=== PATIENT | female | born 1985 | race Hispanic/Latino ===

== ENCOUNTER 2018-05-09 18:59 | Emergency (ER) | payer MEDICAID, OTHER ==
[2018-05-09] MEDS ORDERED: TETANUS/DIPHTHERIA TOXOID [ADULT] 0.5 ML VIAL IM ONE (20:17)
== END 2018-05-09 20:26 | disposition home or self-care (01) ==
LOC: EDH 18:59
DX: S91.112A Laceration without foreign body of left great toe without damage to nail, initial encounter (principal); J45.909 Unspecified asthma, uncomplicated; W01.0XXA Fall on same level from slipping, tripping and stumbling without subsequent striking against object, initial encounter; Y93.89 Activity, other specified; Y92.098 Other place in other non-institutional residence as the place of occurrence of the external cause; Y99.8 Other external cause status
CPT/HCPCS: 12001; 73630; 90471; 90714

== ENCOUNTER 2019-11-23 06:55 | Day surgery (SDC) | payer OTHER ==
[2019-11-19 16:05] VITALS: BP 99/65
[2019-11-19 16:19] LABS: BASOPHILS % (AUTO) 0.4 % (0.0-5.0); EOSINOPHILS % (AUTO) 2.7 % (0.0-8.0); HEMATOCRIT 37.9 % (36-48); LYMPHOCYTES % (AUTO) 36.8 % (21.0-51.0); MEAN CORPUSCULAR VOLUME 96.9 fL (79-99); MONOCYTES % (AUTO) 11.1 % (3.0-13.0); NEUTROPHILS % (AUTO) 48.8 % (40.0-77.0); PLATELET COUNT (AUTO) 182 K/uL (130-400); RED BLOOD CELL COUNT(AUTO) 3.91 MIL/uL (4.00-5.50); RED CELL DISTRIBUTION WIDTH 13.1 % (11.0-15.5); WHITE BLOOD COUNT (AUTO) 5.5 K/uL (4.8-10.8)
[2019-11-19 16:42] LABS: ALANINE AMINOTRANSFERASE 34 U/L (12-78); BILIRUBIN,TOTAL 0.3 mg/dL (0.2-1.0); TOTAL PROTEIN, SERUM 7.9 g/dL (6.0-8.3)
--- NOTE | 2019-11-19 16:44 | NUR ---
NOTE PER PT, SHE HAD COMPLETED ANTIBIOTICS ON 11/16/[address] FORTE IS AWARE.
[2019-11-19 17:08] LABS: ASPARTATE AMINOTRANSFERASE 22 U/L (10-37)
[2019-11-19 17:35] LABS: BILIRUBIN,DIRECT < 0.1 mg/dL (0.0-0.3)
[~2019-11-23] VITALS: Ht 160 cm; Wt 71.7 kg
[2019-11-23] VITALS (22 sets, daily range): BP systolic 98–118; BP diastolic 52–72
[~2019-11-23 06:55] MED LIST: OMEP40CA13 PO
[2019-11-23] MEDS ORDERED: LACTATED RINGERS 1000ML 1,000 ML IV ONE (07:53)
[2019-11-23] MEDS ORDERED: HEPARIN SODIUM 1000UNIT/ML 10ML VIAL ONE (08:50)
[2019-11-23] MEDS ORDERED: ONDANSETRON HCL 4 MG/2 ML VIAL ONE (09:14)
[2019-11-23] MEDS ORDERED: SUCCINYLCHOLINE 200MG/10ML SYR ONE (09:14)
[2019-11-23] MEDS ORDERED: PROPOFOL 10 MG/ML 20ML VIAL IV ONE (09:14)
[2019-11-23] MEDS ORDERED: GLYCOPYRROLATE 1 MG/5 ML SYRINGE ONE (09:14)
[2019-11-23] MEDS ORDERED: NEOSTIGMINE 5MG/5ML SYR IV ONE (09:15)
[2019-11-23] MEDS ORDERED: ROCURONIUM 10MG/1ML SYR 10 MG/ML ML ONE (09:16)
[2019-11-23] MEDS ORDERED: FENTANYL CITRATE PF 50 MCG/1 ML 2ML VIAL ONE (09:16)
[2019-11-23] MEDS ORDERED: MIDAZOLAM HCL 1 MG/ML 2ML VIAL ONE (09:16)
[2019-11-23] MEDS ORDERED: EPHEDRINE SULFATE 50 MG/ML AMPULE ONE (09:41)
[2019-11-23] MEDS ORDERED: MEPERIDINE-PF 25 MG/ML SYG ONE ×3 (09:50→10:58)
[2019-11-23] MEDS ORDERED: MORPHINE SULFATE 4 MG/1ML SYG ONE (12:02)
[2019-11-23] MEDS ORDERED: KETOROLAC TROMETHAMINE 60 MG/2 ML VIAL ONE (13:16)
--- NOTE | 2019-11-23 14:20 | NUR ---
PT LEFT VIA WHEELCHAIR IN PVT CAR, PAIN DECREASE TO 3 OUT OF 10 ON PAIN SCALE. INSTRUCTIONS WERE GIVEN TO ALONG WITH RX SCRIPT.
[2019-11-23] MEDS ORDERED: KETOROLAC TROMETHAMINE 30MG/ML IV ONE (14:45)
== END 2019-11-23 14:20 | disposition home or self-care (01) ==
LOC: DAH 06:55
PROVIDERS: ATTEND Surgery
DX: K80.10 Calculus of gallbladder with chronic cholecystitis without obstruction (principal); K21.9 Gastro-esophageal reflux disease without esophagitis; E66.9 Obesity, unspecified; Z68.30 Body mass index [BMI] 30.0-30.9, adult; Z98.890 Other specified postprocedural states; Z79.2 Long term (current) use of antibiotics; Z79.899 Other long term (current) drug therapy; Z82.49 Family history of ischemic heart disease and other diseases of the circulatory system; Z83.3 Family history of diabetes mellitus; Z82.5 Family history of asthma and other chronic lower respiratory diseases
CPT/HCPCS: 36415; 47562; 80076; 84703; 85025; 88305; A4215; A4221; A4222; A4223; A4450; A4663; A4930 ×2; A6260; C1769 ×4; J0330; J1644; J1885; J2175 ×3; J2250; J2270; J2405; J2704; J2710; J3010; J3490 ×2; J7030; J7120 ×2